=== PATIENT | male | born 1940 | race Caucasian/White ===

== ENCOUNTER 2024-03-07 11:15 | Outpatient (RCR) | payer MEDICARE, OTHER, SELFPAY ==
[2024-02-15 10:16] VITALS: BP 139/50; PULSE 71; RESP 18; TEMP 36.5; BMI 47.0
--- NOTE | 2024-02-15 14:16 | HP.PCM_ITS ---
History of Present Illness Date of Service: 02/15/24 Chief Complaint: Bilateral leg lymphedema and ulceration to the left leg. History of Wound: Bilateral leg lymphedema Progress of Wound: Mr. Hernandez is a 83-year-old diabetic male presenting to the wound care c enter today for follow-up and evaluation of left full-thickness ulceration. Patient also has bilateral leg lymphedema. He currently resides and sleeps in a recliner. He states he cannot lay flat due to shortness of breath. The patient does use home oxygen at home. No treatment thus far to the bilateral lower extremity. He denies any trauma to the left lower extremity. Denies constitutional symptoms. No acute complaints at this time. [facility] Home Medications ?Medication ?Instructions ?Recorded ?Last Taken ?Type diltiazem HCl 300 mg capsule,24 300 mg PO DAILY 02/15/24 Unknown History hr,extended release furosemide 40 mg tablet 40 mg PO BID 02/15/24 Unknown History insulin glargine 100 unit/mL 20 unit subcut 02/15/24 Unknown History subcutaneous solution (Lantus U-100 Insulin) losartan 100 mg tablet 100 mg PO DAILY 02/15/24 Unknown History pioglitazone 30 mg tablet 30 mg PO DAILY 02/15/24 Unknown History rivaroxaban 20 mg tablet (Xarelto) 20 mg PO DAILY 02/15/24 Unknown History simvastatin 40 mg tablet 40 mg PO QHS 02/15/24 Unknown History Allergy/AdvReac Type Severity Reaction Status Date / Time No Known Allergies Allergy Verified 02/15/24 10:28 Social History Smoking Status: Never smoker Vital Signs Vital Signs Vital Signs: 02/15/24 10:16 Temperature 97.7 F L Temperature Source Temporal Pulse Rate 71 Respiratory Rate 18 Blood Pressure 139/50 H Blood Pressure Mean 79 Blood Pressure Source Monitor Blood Pressure Position Semi-Fowlers Blood Pressure Location Left Arm Oxygen Delivery Method Room Air Weight Weight: 136.078 kg Body Mass Index (BMI) 47.0 Physical Exam Narrative Vascular: DP and PT pulses are palpable bilateral. +1 pitting edema appreciated to the bilateral lower extremity. Skin temperature gradient warm to warm from proximal ankles to distal digits bilateral. No evidence of increase in focal warmth bilaterally. Neurological: Light touch intact. Patient does respond to painful stimuli. Dermatological: Full-thickness ulceration to anterior aspect of the left marie measuring 0.8 x 1.5 x 0.2 cm. Evidence of cobblestoning distribution to bilateral extremity. Blanchable erythema secondary to dependent edema. No drainage malodor or probe to bone. No sign of infection at this time. Excisional debridement down to and including subcutaneous tissue to the anterior aspect of the left leg with a number 3 mm dermal curette without incident. Predebridement measurement was sanguinous crust. Postdebridement measurement is 0.8 x 1.5 x 0.2 cm. Musculoskeletal: No pain on palpation to the bilateral extremity. No pain with calf pressure. Debridement Note Debridement Note Debridement Free Text: Excisional debridement down to and including subcutaneous tissue to the anterior aspect of the left leg with a number 3 mm dermal curette without incident. Predebridement measurement was sanguinous crust. Postdebridement measurement is 0.8 x 1.5 x 0.2 cm. Post-Debridement Measurements and Additional Note: Post-Debridement Measurements/Treatment - Nurse 1 - General Ulcer Assessment Start: 02/15/24 10:16 Freq: Status: Active Protocol: RAMESH.[email or web address] Activity Type Activity Date Activity User E-sign Co-sign Detail Recorded Client Recorded Date Recorded By Document 02/15/24 10:16 [facility] [place] 02/15/24 10:25 KW 02/15/24 10:16 - Today's Visit Information Type of service Initial Visit Arrival Mode Ambulatory,Cane Accompanied by Patient Identification Verified (Name & Yes ) Finger Stick Blood Sugar(mg/dl) (if 93 indicated): Blood Sugar Stated by Patient Height and Weight Height 5 ft 7 in Weight 136.078 kg Weight in Pounds 300.0 lbs Weight Measurement Method Estimated by Patient Body Mass Index (BMI) 47.0 BMI Classification Obese BSA - Mirna 2.40 Vital Signs Temperature (97.8 F-99.1 F) 97.7 F L Temperature Source Temporal Pulse Rate (60-100) 71 Pulse Location Monitor Respiratory Rate (12-18) 18 Respiratory rate source Observation Oxygen Delivery Method Room Air Blood Pressure (90/60-120/80) 139/50 H Blood Pressure Mean 79 Source Monitor Position Semi-Fowlers Blood Pressure Location Left Arm Pain Scale: 0-10 Numeric Is Patient Pain Free? Yes Lower Extremity Assessment/ Foot Assessment/ Toe Nail Assessment Left -Posterior Tibial Palpable Yes -Posterior Tibial Doppler Multiphasic -Dorsalis Pedis Palpable Yes -Dorsalis Pedis Doppler Multiphasic -Extremity Color Red -Hair Growth on Legs No -Hair Growth on Toes No -Temperature of Extremity Cool -Thick Yes -Discolored Yes -Deformed No -Improper Length & Hygeine No Right -Posterior Tibial Palpable Yes -Posterior Tibial Doppler Multiphasic -Dorsalis Pedis Palpable Yes -Dorsalis Pedis Doppler Monophasic -Extremity Color Red -Hair Growth on Legs No -Hair Growth on Toes No -Thick Yes -Discolored Yes -Deformed No -Improper Length & Hygeine No Communication Assessment Preferred language Guinean Able to Read Yes Able to Write Yes Communication Tools None Caregiver Communication Skills No Impairment Impairment Right Hearing Abillity Normal Left Hearing Abillity Normal Visual Assistive Devices Glasses Teaching Assessment Preferences Verbal,Written, Demonstration Barriers to Learning None Readiness To Learn Excellent Willingness to Engage in Self Management High Activies Readiness to Engage in Self Management High Activities Anxiety Level Calm Cooperation Cooperative Perception Coherent Interest in Health Problem Asks Questions Education Importance Acknowledges Need Does Patient Smoke tobacco or other No substances Smoking Status Never smoker Is Patient Diabetic Yes Functional Assessment Recent Decline in Ability to Perform Denies Any Declines Culture/Jewish/Disaster Recovery Analyst Cultural/Jewish Needs that may affect No Treatment Plan Would you allow our hospital spareribs trimmer to No meet you for the purpose of spiritual/ emotional support? Disaster Recovery Analyst to contact place of zoroastrianism No WC - Nurse 1 - General Ulcer Measurement Start: 02/15/24 10:16 Freq: Status: Active Protocol: Activity Type Activity Date Activity User E-sign Co-sign Detail Recorded Client Recorded Date Recorded By Document 02/15/24 10:16 KW fcg 02/15/24 10:25 KW 02/15/24 10:16 Wound Center Nurse 1 Right Calf (cm) 61 Right Ankle (cm) 33 Left Calf (cm) 65.8 Left Ankle (cm) 32.4 WC - Nurse 2 - General Ulcer CM Notes Start: 02/15/24 10:16 Freq: Status: Active Protocol: Activity Type Activity Date Activity User E-sign Co-sign Detail Recorded Client Recorded Date Recorded By Document 02/15/24 10:35 JF 000 02/15/24 10:40 JF 02/15/24 10:35 Wound Center Nurse 2 1-left marie -Time 10:38 -Correct Patient Yes -Correct Side, Site, Position Yes -Correct Procedure Yes -Procedure Performed Yes -Type of Procedure Debridement -Clinical Debridement Subcutaneous -Tissue Removed Subcutaneous -Post Debridement (cm) - Length 0.8 -Post Debridement (cm) - Width 1.5 -Post Debridement (cm) - Depth 0.2 -Total Square (Post) (cm) 1.20 -Area of Debridement (cm) - Length 0.8 -Area of Debridement (cm) - Width 1.5 -Total Square (Area) (cm) 1.20 -Tunneling No -Undermining/Tunneling No -Circular Undermining No -Wound/Ulcer Outcome Not Healed -Ulcer Cleansing Rinsed/ Irrigated with Saline -Foul Odor after Cleansing No -Bioengineered Tissue No -Bleeding Controlled with Pressure -Treatment Response Procedure Tolerated Well -Offloading No -Debridement - Subq, 1st 20sq cm Yes Pain Scale: 0-10 Numeric Is Patient Pain Free? Yes - Nurse 3 - General Ulcer D/C NN Start: 02/15/24 10:16 Freq: Status: Active Protocol: Activity Type Activity Date Activity User E-sign Co-sign Detail Recorded Client Recorded Date Recorded By Document 02/15/24 11:04 [facility] 02/15/24 11:05 02/15/24 11:04 Wound Care Center Nurse 3 1-left marie -Ulcer Cleansing Not Cleansed -Foul Odor after Cleansing No -Primary Dressing Applied C Hydrogel ($), Mepilex Border -Mepilex Border 1 Right -Lotion applied to leg before No compression wrap -Tubular Bandage Double Layer -Size of Tubigrip Used Size F -Size F ($) 2 Left -Lotion applied to leg before No compression wrap -Tubular Bandage Double Layer -Size of Tubigrip Used Size F -Size F ($) 2 Pain Scale: 0-10 Numeric Is Patient Pain Free? Yes Teaching: Wound Center Compression Wraps & Stockings -Person Taught Patient,Family -Teaching Method Discussion -Response to teaching Verbalize Understanding - Visit Discharge Discharge Condition Stable Ambulatory Status Ambulatory,Cane Transportation Private Auto Clinical Summary of Care Provided Yes Assessment/Plan Assessment/Plan (1) Non-pressure chronic ulcer of other part of left lower leg with fat layer exposed: CODE(S): L97.822 - Non-pressure chronic ulcer of other part of left lower leg with fat layer exposed PLAN: Patient was examined and evaluated. All findings were discussed with the patient. All questions were answered to the patient's satisfaction. Excisional debridement down to and including subcutaneous tissue to the anterior aspect of the left leg with a number 3 mm dermal curette without incident. Predebridement measurement was sanguinous crust. Postdebridement measurement is 0.8 x 1.5 x 0.2 cm. The left lower extremity are cleaned patted dry, hydrogel collagen was applied to the full-thickness ulceration far by dry sterile dressing and bilateral double layer Tubigrip's. No culture was needed at this time due to no concern for infection. We did order/authorize venous and arterial studies of bilateral lower extremity to see if the patient has any type of vascular insufficiency prior to multilayer compression bandages. Follow-up at the wound care center with Dr. Nino in 1 week. 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
[2024-02-22 10:59] VITALS: BP 145/63; PULSE 84; RESP 18; TEMP 36.3; BMI 47.0
--- NOTE | 2024-02-22 15:46 | PN.PCM_ITS ---
History of Present Illness Date of Service: 02/22/24 Chief Complaint: Bilateral leg lymphedema and ulceration to the left leg. History of Wound: Bilateral leg lymphedema Progress of Wound: Mr. Hernandez is a 83-year-old diabetic male presenting to the wound care c enter today for follow-up and evaluation of left full-thickness ulceration. Patient also has bilateral leg lymphedema. He currently resides and sleeps in a recliner. He states he cannot lay flat due to shortness of breath. The patient does use home oxygen at home. No treatment thus far to the bilateral lower extremity. He denies any trauma to the left lower extremity. Denies constitutional symptoms. No acute complaints at this time. Subjective Subjective Mr. Barbour is a 83-year-old diabetic male presented with her son today follow-up evaluation of full-thickness ulceration to left leg. Patient has been compliant with his bilateral dressing. His blood sugars well-controlled. He did notice improvement with swelling after his compression wraps to the left and right lower extremity. Denies trauma. Denies constitutional symptoms. No other pedal complaints at this time. Objective Data Objective Data Vital Signs: Vital Signs Temp Pulse Resp BP O2 Del Method 97.3 F L 84 18 145/63 H Room Air 02/22/24 10:59 02/22/24 10:59 02/22/24 10:59 02/22/24 10:59 02/22/24 10:59 Oxygen Delivery Method Room Air Weight: 136.078 kg Body Mass Index (BMI) 47.0 Physical Exam Narrative Vascular: DP and PT pulses are palpable bilateral. +1 pitting edema appreciated to the bilateral lower extremity. Skin temperature gradient warm to warm from proximal ankles to distal digits bilateral. No evidence of increase in focal warmth bilaterally. Neurological: Light touch intact. Patient does respond to painful stimuli. Dermatological: Full-thickness ulceration to anterior aspect of the left marie measuring 0.4 x 0.9 x 0.1 cm. Evidence of cobblestoning distribution to bilateral extremity. Blanchable erythema secondary to dependent edema. No drainage malodor or probe to bone. No sign of infection at this time. Excisional debridement down to and including subcutaneous tissue to the anterior aspect of the left leg with a number 3 mm dermal curette without incident. Predebridement measurement was 0.3 x 0.7 x 0.1 cm. Postdebridement measurement is 0.4 x 0.9 x 0.1 cm. Musculoskeletal: No pain on palpation to the bilateral extremity. No pain with calf pressure. Debridement Note Debridement Note Debridement Free Text: Excisional debridement down to and including subcutaneous tissue to the anterior aspect of the left leg with a number 3 mm dermal curette without incident. Predebridement measurement was 0.3 x 0.7 x 0.1 cm. Postdebridement measurement is 0.4 x 0.9 x 0.1 cm. Post-Debridement Measurements and Additional Note: Post-Debridement Measurements/Treatment WC - Nurse 1 - General Ulcer Assessment Start: 02/15/24 10:16 Freq: Status: Active Protocol: CAIT Activity Type Activity Date Activity User E-sign Co-sign Detail Recorded Client Recorded Date Recorded By Document 02/15/24 10:16 KW fcg 02/15/24 10:25 KW Document 02/22/24 10:59 KW asfd 02/22/24 11:05 KW 02/15/24 02/22/24 10:16 10:59 - Today's Visit Information Type of service Initial Visit Follow-up Visit (Physician/SALES LEDGER ADMINISTRATOR ) Arrival Mode Ambulatory,Cane Ambulatory,Cane Accompanied by Patient Identification Verified (Name & Yes Yes ) Finger Stick Blood Sugar(mg/dl) (if 93 indicated): Blood Sugar Stated by Patient Height and Weight Height 5 ft 7 in Weight 136.078 kg Weight in Pounds 300.0 lbs Weight Measurement Method Estimated by Patient Body Mass Index (BMI) 47.0 47.0 BMI Classification Obese Obese BSA - Mirna 2.40 Vital Signs Temperature (97.8 F-99.1 F) 97.7 F L 97.3 F L Temperature Source Temporal Temporal Pulse Rate (60-100) 71 84 Pulse Location Monitor Monitor Respiratory Rate (12-18) 18 18 Respiratory rate source Observation Observation Oxygen Delivery Method Room Air Room Air Blood Pressure (90/60-120/80) 139/50 H 145/63 H Blood Pressure Mean (mm Hg) 79 90 Source Monitor Monitor Position Semi-Fowlers Semi-Fowlers Blood Pressure Location Left Arm Left Arm History Since Last Visit- (Skip if this is Patient's initial visit) Have you changed medications since your No last visit? Any new allergies or adverse reactions No Had a fall/change in ADL's that may No increase risk of falls Signs or symptoms of abuse and/or No neglect since last visit Have you been in the hospital since your No last visit? Has dressing in place as prescribed Yes Has compression in place as prescribed Yes Has offloadiing in place as prescribed N/A Experienced any changes in pain level or No management Left Footwear Custom Shoe Right Footwear Custom Shoe Pain Scale: 0-10 Numeric Is Patient Pain Free? Yes Yes Lower Extremity Assessment/ Foot Assessment/ Toe Nail Assessment Left -Posterior Tibial Palpable Yes -Posterior Tibial Doppler Multiphasic -Dorsalis Pedis Palpable Yes -Dorsalis Pedis Doppler Multiphasic -Extremity Color Red -Hair Growth on Legs No -Hair Growth on Toes No -Temperature of Extremity Cool -Thick Yes -Discolored Yes -Deformed No -Improper Length & Hygeine No Right -Posterior Tibial Palpable Yes -Posterior Tibial Doppler Multiphasic -Dorsalis Pedis Palpable Yes -Dorsalis Pedis Doppler Monophasic -Extremity Color Red -Hair Growth on Legs No -Hair Growth on Toes No -Thick Yes -Discolored Yes -Deformed No -Improper Length & Hygeine No Communication Assessment Preferred language Danish Able to Read Yes Able to Write Yes Communication Tools None Caregiver Communication Skills No Impairment Impairment Right Hearing Abillity Normal Left Hearing Abillity Normal Visual Assistive Devices Glasses Teaching Assessment Preferences Verbal,Written, Demonstration Barriers to Learning None Readiness To Learn Excellent Willingness to Engage in Self Management High Activies Readiness to Engage in Self Management High Activities Anxiety Level Calm Cooperation Cooperative Perception Coherent Interest in Health Problem Asks Questions Education Importance Acknowledges Need Does Patient Smoke tobacco or other No substances Smoking Status Never smoker Is Patient Diabetic Yes Functional Assessment Recent Decline in Ability to Perform Denies Any Declines Culture/Baptism/Customer Pricing Manager Cultural/Baptism Needs that may affect No Treatment Plan Would you allow our hospital glassware maker to No meet you for the purpose of spiritual/ emotional support? Customer Pricing Manager to contact place of pentecostalism No WC - Nurse 1 - General Ulcer Measurement Start: 02/15/24 10:16 Freq: Status: Active Protocol: Activity Type Activity Date Activity User E-sign Co-sign Detail Recorded Client Recorded Date Recorded By Document 02/15/24 10:16 KW fcg 02/15/24 10:25 KW Document 02/22/24 10:59 KW asfd 02/22/24 11:05 KW 02/15/24 02/22/24 10:16 10:59 Wound Center Nurse 1 1-left marie -Current Size (cm) - Length 0.4 -Current Size (cm) - Width 0.3 -Current Size (cm) - Depth 0.1 -Total Square Cm 0.12 -Exudate Amt Small -Exudate Type Serosanguineous -Wound Margin Distinct, Outline Attached -Granulation Amt Small (1-33%) -Granulation Quality Bulger -Necrosis Amt Medium (34-66%) -Necrotic Tissue Type Adherent Slough -Texture (Gladis-wound Skin Appearance) Assessed -Moisture (Gladis-wound Skin Appearance) Assessed -Color (Gladis-wound Skin Appearance) Assessed, Erythema -Temperature (Gladis-wound Skin No Abnormality Appearance) (Pt Warm) -Tenderness on Palpation (Gladis-wound No Skin Appearance) -Ulcer Cleansing Rinsed/ Irrigated with Saline -Foul Odor after Cleansing No -Anesthetic Used 5% Lidocaine Gel Right Calf (cm) 61 51 Right Ankle (cm) 33 30.5 Left Calf (cm) 65.8 54.5 Left Ankle (cm) 32.4 29.5 WC - Nurse 2 - General Ulcer CM Notes Start: 02/15/24 10:16 Freq: Status: Active Protocol: Activity Type Activity Date Activity User E-sign Co-sign Detail Recorded Client Recorded Date Recorded By Document 02/15/24 10:35 JF 000 02/15/24 10:40 Document 02/22/24 11:11 JF 0000 02/22/24 11:13 JF 02/15/24 02/22/24 10:35 11:11 Wound Center Nurse 2 1-left marie -Time 10:38 11:12 -Correct Patient Yes Yes -Correct Side, Site, Position Yes Yes -Correct Procedure Yes Yes -Procedure Performed Yes Yes -Type of Procedure Debridement Debridement -Clinical Debridement Subcutaneous Subcutaneous -Tissue Removed Subcutaneous Subcutaneous -Post Debridement (cm) - Length 0.8 0.4 -Post Debridement (cm) - Width 1.5 0.9 -Post Debridement (cm) - Depth 0.2 0.1 -Total Square (Post) (cm) 1.20 0.36 -Area of Debridement (cm) - Length 0.8 0.4 -Area of Debridement (cm) - Width 1.5 0.9 -Total Square (Area) (cm) 1.20 0.36 -Tunneling No No -Undermining/Tunneling No No -Circular Undermining No No -Wound/Ulcer Outcome Not Healed Not Healed -Ulcer Cleansing Rinsed/ Rinsed/ Irrigated with Irrigated with Saline Saline -Foul Odor after Cleansing No No -Bioengineered Tissue No No -Bleeding Controlled with Pressure Pressure -Treatment Response Procedure Procedure Tolerated Well Tolerated Well -Offloading No No -Debridement - Subq, 1st 20sq cm Yes Yes Pain Scale: 0-10 Numeric Is Patient Pain Free? Yes Yes - Nurse 3 - General Ulcer D/C NN Start: 02/15/24 10:16 Freq: Status: Active Protocol: Activity Type Activity Date Activity User E-sign Co-sign Detail Recorded Client Recorded Date Recorded By Document 02/15/24 11:04 [facility] 02/15/24 11:05 Document 02/22/24 11:23 [facility] 02/22/24 11:24 02/15/24 02/22/24 11:04 11:23 Wound Care Center Nurse 3 1-left marie -Ulcer Cleansing Not Cleansed Not Cleansed -Foul Odor after Cleansing No No -Primary Dressing Applied C Hydrogel ($), Mepilex Border Mepilex Border -Mepilex Border 1 1 Right -Lotion applied to leg before No No compression wrap -Tubular Bandage Double Layer Double Layer -Size of Tubigrip Used Size F Size F -Size F ($) 2 2 Left -Lotion applied to leg before No No compression wrap -Tubular Bandage Double Layer Double Layer -Size of Tubigrip Used Size F Size F -Size F ($) 2 2 Pain Scale: 0-10 Numeric Is Patient Pain Free? Yes Yes Teaching: Wound Center Compression Wraps & Stockings -Person Taught Patient,Family -Teaching Method Discussion -Response to teaching Verbalize Understanding - Visit Discharge Discharge Condition Stable Stable Ambulatory Status Ambulatory,Cane Ambulatory Transportation Private Auto Private Auto Clinical Summary of Care Provided Yes Yes Assessment/Plan Assessment/Plan (1) Non-pressure chronic ulcer of other part of left lower leg with fat layer exposed: CODE(S): L97.822 - Non-pressure chronic ulcer of other part of left lower leg with fat layer exposed PLAN: Patient was examined and evaluated. All findings were discussed with the patient. All questions were answered to the patient's satisfaction. Excisional debridement down to and including subcutaneous tissue to the anterior aspect of the left leg with a number 3 mm dermal curette without incident. Predebridement measurement was 0.3 x 0.7 x 0.1 cm. Postdebridement measurement is 0.4 x 0.9 x 0.1 cm. Left lower extremities were cleaned and patted dry. The ulceration was dressed with hydrogel, dry sterile dressing and double layer Tubigrip was donned to bilateral lower extremity. Patient will continue to rest and elevate his feet whenever nonambulatory. Patient will continue strict blood sugar control. Patient is planning to get vascular studies in the upcoming week. Follow-up at the wound care center with Dr. Nino in 1 week. (2) Lymphedema, not elsewhere classified: CODE(S): I89.0 - Lymphedema, not elsewhere classified (3) Chronic painful diabetic polyneuropathy: CODE(S): E11.42 - Type 2 diabetes mellitus with diabetic polyneuropathy (4) Other specified peripheral vascular diseases: CODE(S): I73.89 - Other specified peripheral vascular diseases
--- NOTE | 2024-02-29 08:57 | VDLE_ITS ---
Reason For Study: LLE Wound RIGHT LEFT CFV is compressible, spontaneous, phasic, CFV is compressible, spontaneous, phasic, competent and demonstrates normal competent, and demonstrates normal augmentation. augmentation. FV is compressible, spontaneous, phasic, FV is compressible, spontaneous, phasic, competent and demonstrates normal competent and demonstrates normal augmentation. augmentation. POP V is compressible, spontaneous, phasic, POP V is compressible, spontaneous, phasic, competent and demonstrates normal competent and demonstrates normal augmentation. augmentation. T/P Trunk is compressible. T/P Trunk is compressible. PTV is compressible. PTV is compressible. RT PerV is compressible. LT PerV is compressible. SFJ is competent and measures 0.72 cm. SFJ is competent and measures 0.65 cm. GSV proximal thigh measures 0.45 x 0.45 cm. GSV proximal thigh measures 0.59 x 0.56 cm. GSV at knee measures 0.39 x 0.39 cm. GSV at knee measures 0.45 x 0.45 cm. GSV INCOMPETENT throughout for greater than GSV above knee is competent. 0.5 seconds. GSV below knee is INCOMPETENT for greater ASV mid thigh is INCOMPETENT for greater than than 0.5 seconds. 0.5 seconds and measures 0.46 x 0.53 cm. SSV proximal calf is competent and measures ASV mid calf is INCOMPETENT for greater than 0.39 x 0.38 cm. 0.5 seconds and measures 0.52 x 0.58 cm. SSV proximal calf is competent and measures 0.34 x 0.30 cm. Procedure Exam performed in department. This is a venous duplex using B-mode, color flow and spectral Doppler. Patient was scanned in reverse Trendelenburg position during reflux assessment. The exam was diagnostic. The study was technically difficult. VL/Venous Duplex US - Vikash Extrem Interpretation Summary Deep veins of the lower extremities are bilaterally patent and compressible seg mentally. There is no evidence of deep vein thrombosis on either side. Valvular competence appears in tact within the proximal deep venous systems bilaterally. The great saphenous veins appear bila terally patent and compressible segmentally. Sapheno-femoral junctions are bilaterally competent . The right great saphenous vein appears segmentally incompetent. The left great saphenous vein a ppears competent above the knee. The left great saphenous vein appears incompetent below the kne e. Small saphenous veins are patent and competent bilaterally. The accessory saphenous vein in the right mid-thigh and mid-calf are incompetent. Ordering Physician: Asher Nino Referring Physician: Gianni Mccord Performed By: Luis Whitten RVT
--- NOTE | 2024-02-29 08:57 | ART_ITS ---
Reason For Study: LLE Wound Procedure A bilateral lower extremity continuous wave Doppler with analog waveform analysis,segmental pressures,and ankle brachial indexes without exercise. Left Segmental Pressures Left brachial= 128mmHg. Left posterior tibial artery = 146mmHg. Left dorsalis pedis artery = 179mmHg. Left digit = 123 mmHg. The left posterior tibial artery waveforms are triphasic. The left dorsalis pedis waveforms are triphasic. Right Segmental Pressures Right brachial= 138mmHg. Right posterior tibial artery = 229mmHg. Right dorsalis pedis artery = >254mmHg. Right digit = 128 mmHg. The right posterior tibial artery waveforms are triphasic. The right dorsalis pedis waveforms are triphasic. Indices The right ankle brachial index by the posterior tibial artery is 1.66. The right ankle brachial index by the dorsalis pedis is N/C. The right digital-brachial index is 0.93. The left ankle brachial index by the posterior tibial artery is 1.06. The left ankle brachial index by the dorsalis pedis is 1.30. The left digital-brachial index is 0.89. VL/Lower Ext Art Exam w/o Exercis Interpretation Summary Triphasic Doppler waveforms are noted at ankle level bilaterally. Pulse-volume recordings appear satisfactory at all levels bilaterally. The resting right ankle-brachial index is supra-normal. The resting left ankle-brachial index is normal. Digital-brachial indices are huy l bilaterally. There is evidence of arterial calcification at ankle level on the right. There is no evidence of significant arterial occlusive disease in the lower extremities bilaterally. Ordering Physician: Asher Nino Referring Physician: Gianni Mccord Performed By: Luis Whitten RVT
[2024-02-29 11:47] VITALS: BP 124/47; PULSE 70; RESP 18; TEMP 35.6; BMI 47.0
--- NOTE | 2024-02-29 13:04 | PCM.WC.PN ---
History of Present Illness Date of Service: 02/29/24 Chief Complaint: Bilateral leg lymphedema and ulceration to the left leg. History of Wound: Bilateral leg lymphedema Progress of Wound: Mr. Hernandez is a 83-year-old diabetic male presenting to the wound care center today for follow-up and evaluation of left full-thickness ulceration. Patient also has bilateral leg lymphedema. He currently resides and sleeps in a recliner. He states he cannot lay flat due to shortness of breath. The patient does use home oxygen at home. No treatment thus far to the bilateral lower extremity. He denies any trauma to the left lower extremity. Denies constitutional symptoms. No acute complaints at this time. Subjective Subjective Mr. Barbour is a 83-year-old male with pertinent wound care center today follow-up evaluation of bilateral leg swelling and full-thickness ulceration to left leg. Patient is got his pulse volume recordings done and is here to go over the results. He has been compliant with his dressing. Denies trauma. Denies constitutional symptoms. No other pedal complaints at this time. Objective Data Objective Data Vital Signs: Vital Signs Temp Pulse Resp BP O2 Del Method 96.1 F L 70 18 124/47 H Room Air 02/29/24 11:47 02/29/24 11:47 02/29/24 11:47 02/29/24 11:47 02/29/24 11:47 Oxygen Delivery Method Room Air Weight: 136.078 kg Body Mass Index (BMI) 47.0 Physical Exam Narrative Vascular: DP and PT pulses are palpable bilateral. +1 pitting edema appreciated to the bilateral lower extremity. Skin temperature gradient warm to warm from proximal ankles to distal digits bilateral. No evidence of increase in focal warmth bilaterally. Neurological: Light touch intact. Patient does respond to painful stimuli. Dermatological: Full-thickness ulceration to left anterior marie is now healed. Cobblestoning distribution is improving. Erythema is improving. Musculoskeletal: No pain on palpation to the bilateral extremity. No pain with calf pressure. Debridement Note Debridement Note Post-Debridement Measurements and Additional Note: Post-Debridement Measurements/Treatment ARMESH - Nurse 1 - General Ulcer Assessment Start: 02/15/24 10:16 Freq: Status: Active Protocol: HERBT Activity Type Activity Date Activity User E-sign Co-sign Detail Recorded Client Recorded Date Recorded By Document 02/15/24 10:16 KW fcg 02/15/24 10:25 KW Document 02/22/24 10:59 KW asfd 02/22/24 11:05 KW Document 02/29/24 11:47 KW [id number] 02/29/24 11:54 KW 02/15/24 02/22/24 02/29/24 10:16 10:59 11:47 WC - Today's Visit Information Type of service Initial Visit Follow-up Visit Follow-up Visit (Physician/SPIKEMAKING SUPERVISOR (Physician/SPIKEMAKING SUPERVISOR ) ) Arrival Mode Ambulatory,Cane Ambulatory,Cane Ambulatory,Cane Accompanied by Patient Identification Verified (Name & Yes Yes Yes ) Finger Stick Blood Sugar(mg/dl) (if 93 indicated): Blood Sugar Stated by Patient Height and Weight Height 5 ft 7 in Weight 136.078 kg Weight in Pounds 300.0 lbs Weight Measurement Method Estimated by Patient Body Mass Index (BMI) 47.0 47.0 47.0 BMI Classification Obese Obese Obese BSA - Mirna 2.40 Vital Signs Temperature (97.8 F-99.1 F) 97.7 F L 97.3 F L 96.1 F L Temperature Source Temporal Temporal Temporal Pulse Rate (60-100) 71 84 70 Pulse Location Monitor Monitor Monitor Respiratory Rate (12-18) 18 18 18 Respiratory rate source Observation Observation Monitor Oxygen Delivery Method Room Air Room Air Room Air Blood Pressure (90/60-120/80) 139/50 H 145/63 H 124/47 H Blood Pressure Mean (mm Hg) 79 90 72 Source Monitor Monitor Monitor Position Semi-Fowlers Semi-Fowlers Sitting Blood Pressure Location Left Arm Left Arm Left Arm History Since Last Visit- (Skip if this is Patient's initial visit) Have you changed medications since your No No last visit? Any new allergies or adverse reactions No No Had a fall/change in ADL's that may No No increase risk of falls Signs or symptoms of abuse and/or No No neglect since last visit Have you been in the hospital since your No No last visit? Has dressing in place as prescribed Yes Yes Has compression in place as prescribed Yes Yes Has offloadiing in place as prescribed N/A N/A Experienced any changes in pain level or No No management Left Footwear Custom Shoe Regular Shoe Right Footwear Custom Shoe Regular Shoe Pain Scale: 0-10 Numeric Is Patient Pain Free? Yes Yes Yes Lower Extremity Assessment/ Foot Assessment/ Toe Nail Assessment Left -Posterior Tibial Palpable Yes -Posterior Tibial Doppler Multiphasic -Dorsalis Pedis Palpable Yes -Dorsalis Pedis Doppler Multiphasic -Extremity Color Red -Hair Growth on Legs No -Hair Growth on Toes No -Temperature of Extremity Cool -Thick Yes -Discolored Yes -Deformed No -Improper Length & Hygeine No Right -Posterior Tibial Palpable Yes -Posterior Tibial Doppler Multiphasic -Dorsalis Pedis Palpable Yes -Dorsalis Pedis Doppler Monophasic -Extremity Color Red -Hair Growth on Legs No -Hair Growth on Toes No -Thick Yes -Discolored Yes -Deformed No -Improper Length & Hygeine No Communication Assessment Preferred language Greenlandic Able to Read Yes Able to Write Yes Communication Tools None Caregiver Communication Skills No Impairment Impairment Right Hearing Abillity Normal Left Hearing Abillity Normal Visual Assistive Devices Glasses Teaching Assessment Preferences Verbal,Written, Demonstration Barriers to Learning None Readiness To Learn Excellent Willingness to Engage in Self Management High Activies Readiness to Engage in Self Management High Activities Anxiety Level Calm Cooperation Cooperative Perception Coherent Interest in Health Problem Asks Questions Education Importance Acknowledges Need Does Patient Smoke tobacco or other No substances Smoking Status Never smoker Is Patient Diabetic Yes Functional Assessment Recent Decline in Ability to Perform Denies Any Declines Culture/Holiness/Veterinary Physiologist Cultural/Holiness Needs that may affect No Treatment Plan Would you allow our hospital director private music therapy agency to No meet you for the purpose of spiritual/ emotional support? Veterinary Physiologist to contact place of [facility] No WC - Nurse 1 - General Ulcer Measurement Start: 02/15/24 10:16 Freq: Status: Active Protocol: Activity Type Activity Date Activity User E-sign Co-sign Detail Recorded Client Recorded Date Recorded By Document 02/15/24 10:16 KW fcg 02/15/24 10:25 KW Document 02/22/24 10:59 KW asfd 02/22/24 11:05 KW Document 02/29/24 11:47 KW [id number] 02/29/24 11:54 KW 02/15/24 02/22/24 02/29/24 10:16 10:59 11:47 Wound Center Nurse 1 1-left marie -Combined with (Name of Wound-Exactly .1 as it is documented) -Current Size (cm) - Length 0.4 0.1 -Current Size (cm) - Width 0.3 0.1 -Current Size (cm) - Depth 0.1 -Total Square Cm 0.12 0.01 -Epithelialization Large 67-100% -Exudate Amt Small None Present -Exudate Type Serosanguineous -Wound Margin Distinct, Distinct, Outline Outline Attached Attached -Granulation Amt Small (1-33%) -Granulation Quality [place] -Necrosis Amt Medium (34-66%) -Necrotic Tissue Type Adherent Slough -Texture (Gladis-wound Skin Appearance) Assessed Assessed -Moisture (Gladis-wound Skin Appearance) Assessed Assessed -Color (Gladis-wound Skin Appearance) Assessed, Assessed Erythema -Temperature (Gladis-wound Skin No Abnormality No Abnormality Appearance) (Pt Warm) (Pt Warm) -Tenderness on Palpation (Gladis-wound No No Skin Appearance) -Ulcer Cleansing Rinsed/ Rinsed/ Irrigated with Irrigated with Saline Saline -Foul Odor after Cleansing No No -Anesthetic Used 5% Lidocaine 5% Lidocaine Gel Gel Right Calf (cm) 61 51 49 Right Ankle (cm) 33 30.5 30 Left Calf (cm) 65.8 54.5 49 Left Ankle (cm) 32.4 29.5 30 WC - Nurse 2 - General Ulcer CM Notes Start: 02/15/24 10:16 Freq: Status: Active Protocol: Activity Type Activity Date Activity User E-sign Co-sign Detail Recorded Client Recorded Date Recorded By Document 02/15/24 10:35 000 02/15/24 10:40 Document 02/22/24 11:11 JF 0000 02/22/24 11:13 Document 02/29/24 12:07 [id number] 02/29/24 12:08 02/15/24 02/22/24 02/29/24 10:35 11:11 12:07 Wound Center Nurse 2 1-left marie -Time 10:38 11:12 -Correct Patient Yes Yes No -Correct Side, Site, Position Yes Yes No -Correct Procedure Yes Yes No -Procedure Performed Yes Yes No -Type of Procedure Debridement Debridement -Clinical Debridement Subcutaneous Subcutaneous -Tissue Removed Subcutaneous Subcutaneous -Post Debridement (cm) - Length 0.8 0.4 0 -Post Debridement (cm) - Width 1.5 0.9 0 -Post Debridement (cm) - Depth 0.2 0.1 0 -Total Square (Post) (cm) 1.20 0.36 0 -Area of Debridement (cm) - Length 0.8 0.4 0 -Area of Debridement (cm) - Width 1.5 0.9 0 -Total Square (Area) (cm) 1.20 0.36 0 -Tunneling No No -Undermining/Tunneling No No -Circular Undermining No No -Wound/Ulcer Outcome Not Healed Not Healed Healed- Epithelialized -Ulcer Cleansing Rinsed/ Rinsed/ Irrigated with Irrigated with Saline Saline -Foul Odor after Cleansing No No -Bioengineered Tissue No No -Bleeding Controlled with Pressure Pressure -Treatment Response Procedure Procedure Tolerated Well Tolerated Well -Offloading No No -Debridement - Subq, 1st 20sq cm Yes Yes Pain Scale: 0-10 Numeric Is Patient Pain Free? Yes Yes Yes - Nurse 3 - General Ulcer D/C NN Start: 02/15/24 10:16 Freq: Status: Active Protocol: Activity Type Activity Date Activity User E-sign Co-sign Detail Recorded Client Recorded Date Recorded By Document 02/15/24 11:04 [facility] 02/15/24 11:05 Document 02/22/24 11:23 [facility] 02/22/24 11:24 Document 02/29/24 12:23 [id number] 02/29/24 12:26 02/15/24 02/22/24 02/29/24 11:04 11:23 12:23 Wound Care Center Nurse 3 1-left marie -Ulcer Cleansing Not Cleansed Not Cleansed -Foul Odor after Cleansing No No -Primary Dressing Applied C Hydrogel ($), Mepilex Border Mepilex Border -Mepilex Border 1 1 erik -Multi-Layered Wrap Application Multi-Layer Comp - Bilat ($ ) Right -Lotion applied to leg before No No compression wrap -Tubular Bandage Double Layer Double Layer -Size of Tubigrip Used Size F Size F -Size F ($) 2 2 Left -Lotion applied to leg before No No compression wrap -Tubular Bandage Double Layer Double Layer -Size of Tubigrip Used Size F Size F -Size F ($) 2 2 Treatment Response Procedure Tolerated Well Pain Scale: 0-10 Numeric Is Patient Pain Free? Yes Yes Yes Teaching: Wound Center Compression Wraps & Stockings -Person Taught Patient,Family -Teaching Method Discussion -Response to teaching Verbalize Understanding - Visit Discharge Discharge Condition Stable Stable Stable Ambulatory Status Ambulatory,Cane Ambulatory Ambulatory,Cane Transportation Private Auto Private Auto Private Auto Clinical Summary of Care Provided Yes Yes Assessment/Plan Assessment/Plan (1) Non-pressure chronic ulcer of other part of left lower leg with fat layer exposed: CODE(S): L97.822 - Non-pressure chronic ulcer of other part of left lower leg with fat layer exposed PLAN: Patient was examined and evaluated. All findings were discussed with the patient. All questions were answered to the patient's satisfaction. Patient's right ESTRADA are 1.66, TBI 0.93. Left ESTRADA 1.30, TBI 0.89. Educated the patient that he has evidence of noncompressible vessels the right lower extremity and his left lower extremity is normal. Patient shows no evidence of delayed healing as his ulceration is now healed. If there is any compromise or complications will recommend vascular referral and follow-up for continued care. Full-thickness wound to the left anterior leg is now healed. Patient will be dressed in bilateral 3M wraps as his pulse volume recordings have returned. Will begin authorization for CircAid's to the bilateral lower extremity as the patient will need continuous compression moving forward. Follow-up at the wound care center for nursing visits over the next 2 weeks and follow-up with Dr. Nino in 2 weeks. (2) Lymphedema, not elsewhere classified: CODE(S): I89.0 - Lymphedema, not elsewhere classified (3) Chronic painful diabetic polyneuropathy: CODE(S): E11.42 - Type 2 diabetes mellitus with diabetic polyneuropathy (4) Other specified peripheral vascular diseases: CODE(S): I73.89 - Other specified peripheral vascular diseases
[2024-03-07 11:35] VITALS: BP 138/44; PULSE 79; RESP 18; TEMP 36.4
== END 2024-03-10 23:59 | disposition home or self-care (01) ==
LOC: WC 11:15
PROVIDERS: PCP Family Medicine; Referring Provider Family Medicine; Visit Provider Podiatrist Foot & Ankle Surgery
DX: E11.622 Type 2 diabetes mellitus with other skin ulcer (principal); L97.822 Non-pressure chronic ulcer of other part of left lower leg with fat layer exposed; E11.42 Type 2 diabetes mellitus with diabetic polyneuropathy; E11.51 Type 2 diabetes mellitus with diabetic peripheral angiopathy without gangrene; Z79.4 Long term (current) use of insulin; I89.0 Lymphedema, not elsewhere classified; M79.605 Pain in left leg; Z99.81 Dependence on supplemental oxygen; Z79.01 Long term (current) use of anticoagulants; Z79.899 Other long term (current) drug therapy
CPT/HCPCS: 11042; 29581; 93923; 93970; 99204; 99213; G0463

== ENCOUNTER 2024-03-20 11:30 | Outpatient (RCR) | payer MEDICARE, OTHER, SELFPAY ==
[2024-03-11 00:39] VITALS: BP 138/44; PULSE 79; RESP 18; TEMP 36.4; BMI 47.0
[2024-03-14 13:59] VITALS: BP 140/62; PULSE 81; RESP 18; TEMP 36.2; BMI 47.0
--- NOTE | 2024-03-14 14:23 | PCM.WC.PN ---
History of Present Illness Date of Service: 03/14/24 Chief Complaint: Bilateral leg lymphedema and ulceration to the left leg. History of Wound: Bilateral leg lymphedema Subjective Subjective Mr. Barbour is a 83-year-old male with pertinent wound care center today follow-up evaluation of bilateral leg swelling and full-thickness ulceration to left leg. Patient CircAid should be arriving tomorrow at his home. He denies any trauma. Denies constitutional symptoms. No other pedal complaints at this time. Objective Data Objective Data Vital Signs: Vital Signs Temp Pulse Resp BP 97.1 F L 81 18 140/62 H 03/14/24 13:59 03/14/24 13:59 03/14/24 13:59 03/14/24 13:59 Weight: 136.078 kg Body Mass Index (BMI) 47.0 Physical Exam Narrative Vascular: DP and PT pulses are palpable bilateral. +1 pitting edema appreciated to the bilateral lower extremity. Skin temperature gradient warm to warm from proximal ankles to distal digits bilateral. No evidence of increase in focal warmth bilaterally. Evidence of dependent rubor bilateral lower extremity. Neurological: Light touch intact. Patient does respond to painful stimuli. Dermatological: Full-thickness ulceration to left anterior marie is now healed. Cobblestoning distribution is improving. Erythema is improving. Musculoskeletal: No pain on palpation to the bilateral extremity. No pain with calf pressure. Debridement Note Debridement Note Post-Debridement Measurements and Additional Note: Post-Debridement Measurements/Treatment - Nurse 1 - General Ulcer Assessment Start: 03/14/24 13:59 Freq: Status: Active Protocol: RAMESH.MISAEL Activity Type Activity Date Activity User E-sign Co-sign Detail Recorded Client Recorded Date Recorded By Document 03/14/24 13:59 [id number] 03/14/24 14:12 CP 03/14/24 13:59 - Today's Visit Information Type of service Follow-up Visit (Physician/TOOL MACHINE SHOP SUPERVISOR ) Arrival Mode Ambulatory Transfer Assistance None Patient Identification Verified (Name & Yes ) Safety Precautions NA Height and Weight Body Mass Index (BMI) 47.0 BMI Classification Obese Vital Signs Temperature (97.8 F-99.1 F) 97.1 F L Temperature Source Temporal Pulse Rate (60-100) 81 Pulse Location Monitor Respiratory Rate (12-18) 18 Respiratory rate source Observation Blood Pressure (90/60-120/80) 140/62 H Blood Pressure Mean (mm Hg) 88 Source Monitor Position Semi-Fowlers Blood Pressure Location Right Arm History Since Last Visit- (Skip if this is Patient's initial visit) Have you changed medications since your No last visit? Any new allergies or adverse reactions No Had a fall/change in ADL's that may No increase risk of falls Signs or symptoms of abuse and/or No neglect since last visit Have you been in the hospital since your No last visit? Has dressing in place as prescribed Yes Has compression in place as prescribed Yes Has offloadiing in place as prescribed N/A Experienced any changes in pain level or No management Pain Scale: 0-10 Numeric Is Patient Pain Free? Yes - Nurse 1 - General Ulcer Measurement Start: 03/14/24 13:59 Freq: Status: Active Protocol: Activity Type Activity Date Activity User E-sign Co-sign Detail Recorded Client Recorded Date Recorded By Document 03/14/24 13:59 CP [id number] 03/14/24 14:12 CP 03/14/24 13:59 Wound Center Nurse 1 Right Calf (cm) 44.5 Right Ankle (cm) 27.5 Left Calf (cm) 44 Left Ankle (cm) 27 - Nurse 2 - General Ulcer CM Notes Start: 03/14/24 13:59 Freq: Status: Active Protocol: Activity Type Activity Date Activity User E-sign Co-sign Detail Recorded Client Recorded Date Recorded By Document 03/14/24 14:19 [id number] 03/14/24 14:20 03/14/24 14:19 Pain Scale: 0-10 Numeric Is Patient Pain Free? Yes Assessment/Plan Assessment/Plan (1) Non-pressure chronic ulcer of other part of left lower leg with fat layer exposed: CODE(S): L97.822 - Non-pressure chronic ulcer of other part of left lower leg with fat layer exposed PLAN: Patient was examined and evaluated. All findings were discussed with the patient. All questions were answered to the patient's satisfaction. After conversation with the patient, he is expecting to get the CircAid bilateral wraps delivered to his house tomorrow. Patient will be placed in bilateral 3M compression wraps to be left on clean dry and intact. He will follow-up Tuesday for nursing visit and education regarding donning and removal of multilayer compression bandage/CircAid wraps. Following this the patient will follow back with nursing in about 1 week to 2 weeks for final evaluation. Patient will be discharged from my services as his wound is now healed and undergoing nursing visits for continued edema control and education. Educated the patient that he will need to wear his multilayer compression wraps daily, not to sleep in them but use them as an adjunct for keeping his swelling down and decreasing the likelihood of reulceration which she was also understanding of. Patient can follow-up as needed. (2) Other specified peripheral vascular diseases: CODE(S): I73.89 - Other specified peripheral vascular diseases
[2024-03-20 11:54] VITALS: BP 158/56; PULSE 81; RESP 18; TEMP 35.9; BMI 47.0
== END 2024-04-09 23:59 | disposition home or self-care (01) ==
LOC: WC 11:30
PROVIDERS: PCP Family Medicine; Referring Provider Family Medicine; Visit Provider Podiatrist Foot & Ankle Surgery
DX: I89.0 Lymphedema, not elsewhere classified (principal); Z79.4 Long term (current) use of insulin; R60.0 Localized edema; I73.89 Other specified peripheral vascular diseases; Z79.01 Long term (current) use of anticoagulants; Z79.899 Other long term (current) drug therapy
CPT/HCPCS: 29581; 99212; 99213; G0463